=== PATIENT | female | born 1945 | race Caucasian/White ===

== ENCOUNTER 2016-03-28 20:52 | Emergency (ER) | payer MEDICARE, OTHER ==
[~2016-03-28] VITALS: Ht 152.4 cm; Wt 58.0 kg
[~2016-03-28 20:52] MED LIST: ALBU2.5V3 NEB; ALEN70TA30 PO; ALP2OP10 OP; CEPH-443 PO; CHOL2000 PO; COMBIG5 OP; FLUTICASONE PROPION INH
[2016-03-28 21:07] VITALS: Ht 152.4 cm; Wt 58.0 kg
[2016-03-28 21:37] VITALS: TEMP 97.9
[2016-03-28] MEDS ORDERED: SOD CHLORIDE 0.9% 1,000 ML IV STA (21:40)
[2016-03-28] MEDS ORDERED: ALEN70TA30 PO (21:44)
[2016-03-28] MEDS ORDERED: VALS1TAB76 PO (21:45)
[2016-03-28] MEDS ORDERED: ERGO500037 PO (21:46)
[2016-03-28 22:20] LABS: INR 0.96; PROTIME 12.8 Sec (12.2-14.2)
[2016-03-28 22:21] LABS: PARTIAL THROMBOPLASTIN TIME 29.1 Sec (25.0-35.0)
[2016-03-28 22:24] LABS: CHLORIDE 90 mmol/L (97-110); POTASSIUM 4.2 mmol/L (3.5-5.1); SODIUM 128 mmol/L (135-144)
[2016-03-28 22:27] LABS: ANION GAP 15 (8-16); BLOOD UREA NITROGEN 15 mg/dl (7-20); CARBON DIOXIDE 27 mmol/L (21-31); CREATININE 0.56 mg/dl (0.44-1.00)
[2016-03-28 22:28] LABS: CALCIUM 9.1 mg/dl (8.4-10.2); GLUCOSE 125 mg/dl (70-220)
--- NOTE | 2016-03-28 22:29 | RADRPT ---
PROCEDURE: XR Chest. CLINICAL INDICATION: Syncope. TECHNIQUE: Portable AP semi erect view of the chest was obtained. COMPARISON: 03/31/2013 FINDINGS: The cardiomediastinal silhouette is within normal limits. The lungs are clear. There is no evidenc e for pleural effusion, pneumothorax or pulmonary vascular congestion. The osseous structures are i ntact with no evidence for acute abnormality. Mild calcification of the aortic arch is visualized RPTAT:HJJR IMPRESSION: 1.No evidence for acute intrathoracic pathology or change from 03/31/2013. 2. Aortic atherosclerosis is present. Physician Nick Date Time Electronically viewed and signed by Physician Nick on 03/28/2016 22:28 /
[2016-03-28 22:33] LABS: BASOPHILS % 0.2 % (0.0-2.0); EOSINOPHILS # 0.2 10^3/ul (0.0-0.5); EOSINOPHILS % 2.4 % (0.0-7.0); HEMATOCRIT 40.6 % (37.0-47.0); HEMOGLOBIN 13.7 g/dl (12.0-16.0); LYMPHOCYTES # 0.6 10^3/ul (0.8-2.9); LYMPHOCYTES % 7.4 % (15.0-51.0); MEAN CORPUSCULAR HEMOGLOBIN 29.8 pg (29.0-33.0); MEAN CORPUSCULAR HGB CONC 33.8 g/dl (32.0-37.0); MEAN CORPUSCULAR VOLUME 88.1 fl (82.0-101.0); MEAN PLATELET VOLUME 8.5 fl (7.4-10.4); MONOCYTE # 0.8 10^3/ul (0.3-0.9); MONOCYTES % 10.3 % (0.0-11.0); NEUTROPHIL # 6.5 10^3/ul (1.6-7.5); NEUTROPHILS % 79.7 % (39.0-77.0); PLATELET COUNT 208 10^3/UL (140-440); RED BLOOD COUNT 4.61 10^6/ul (4.20-5.40); RED CELL DISTRIBUTION WIDTH 13.6 % (11.5-14.5); UNCORRECTED WBC 8.2 10^3/ul (4.8-10.8); WHITE BLOOD COUNT 8.2 10^3/ul (4.8-10.8)
[2016-03-28 22:41] LABS: TROPONIN-I < 0.012 ng/ml (0.00-0.12)
[2016-03-28 23:03] LABS: CONDITION 1
--- NOTE | 2016-03-28 23:09 | RADRPT ---
PROCEDURE: CT head, without contrast. CLINICAL INDICATION: Syncope. TECHNIQUE: Noncontrast CT examination of the head, with axial, sagittal and coronal reformatted im ages. Automated dose exposure control was employed. CTDI: 43.05 mGy and DLP: 630.20 mGy-cm. COMPARISON: None. 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 No acute hemorrhage. Subarachnoid spaces are substantially preserved and symmetric. Ventricles ar e unremarkable. No mass effect. Rogel-white matter distinction is preserved without evident decreased attenuation t o suggest acute or recent infarct. Sinuses and osseous structures are unremarkable. 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 RPTAT: [facility] Physician Rohit Date Time Electronically viewed and signed by Physician Rohit on 03/28/2016 23:09 RS/
[2016-03-28] MEDS ORDERED: ONDA4TAB11 PO (23:18)
[2016-03-28 23:25] LABS: ADD UMIC NO; URINE BILIRUBIN (Dip) NEGATIVE (NEGATIVE); URINE BLOOD (Dip) NEGATIVE (NEGATIVE); URINE COLOR LT. YELLOW (YELLOW); URINE GLUCOSE (Dip) NEGATIVE (NEGATIVE); URINE KETONES (Dip) NEGATIVE (NEGATIVE); URINE LEUKOCYTE ESTERASE (Dip) NEGATIVE (NEGATIVE); URINE NITRITE (Dip) NEGATIVE (NEGATIVE); URINE TOTAL PROTEIN (Dip) NEGATIVE (NEGATIVE); URINE UROBILINOGEN (Dip) 0.2 E.U./dL (0.1-1.0)
[2016-03-28] MEDS ORDERED: SOD CHLORIDE 0.9% 1,000 ML IV ONE (23:30)
--- NOTE | 2016-03-29 01:09 | ERD ---
ER Documentation Chief Complaint Date/Time DATE: 03/29/16 TIME: 01:05 Chief Complaint syncope x 3 seconds, hypertension hx-htn -taking bp meds HPI This 70-year-old female presents the ER for a syncopal episode witnessed by family. Reportedly she was laying down in bed when she got up to go to the bathroom took some steps towards the bathroom and felt very lightheaded and nauseated. She knelt down in the bathroom to throw up in the toilet when she had 3 seconds of loss of consciousness. She did not fall or hit her head. She felt somewhat lightheaded and nauseated afterward. She did vomit. Denies any diarrhea. Patient and family admits that she rarely drinks water. She had no chest pain shortness of breath fever or chills. ROS All systems reviewed and are negative except as per history of present illness. Medications Home Meds Active Scripts Ondansetron (Zofran Odt) 4 Mg Tab.rapdis, 4 MG PO Q6, #10 Prov:FANNYNORBERTVARSHA SOLOMON 03/28/16 Reported Medications Ergocalciferol (Vitamin D2) (VITAMIN D2) 50,000 Unit Capsule, 70938 UNIT PO Q7D , CAP 03/28/16 Valsartan-Hydrochlorothiazide (Valsartan-HCTZ) 160-12.5 Mg Tablet, 1 TAB PO DAILY, #30 TAB 03/28/16 Alendronate Sodium* (Fosamax*) 70 Mg Tablet, 70 MG PO Q7D, #4 TAB 03/28/16 Discontinued Reported Medications Albuterol Sulfate* (Albuterol Sulfate* Neb) 0.083%-3 Ml Neb, 2.5 MG NEB Q3H Y for WHEEZING AND SOB, #30 VIAL 08/30/15 Alendronate Sodium* (Fosamax*) 70 Mg Tablet, 70 MG PO Q7D, #4 TAB 08/30/15 Cholecalciferol* (Vitamin D3*) 2,000 Unit Cap, 2000 UNIT PO DAILY, CAP 08/30/15 [Fluticasone Propion] No Conflict Check, 50 MCG INH BID 06/12/12 Brimonidine/Timolol* (Combigan*) 5 Ml Drops, 2.5 ML OP DAILY 09/22/11 Brimonidine Tartrate* (Alphagan*) 10 Ml Drops, 10 ML OP DAILY 09/22/11 Discontinued Scripts Cephalexin* (Keflex*) 500 Mg Capsule, 500 MG PO QID for 5 Days, CAP Prov:GIOVANI MAYNARD 12/08/14 Allergies Allergies: Coded Allergies: No Known Allergy (Unverified , 03/28/16) PMhx/Soc History of Surgery: Yes (EYE SX) Anesthesia Reaction: No Hx Neurological Disorder: No Hx Respiratory Disorders: Yes (HX BRONCHITIS) Hx Cardiac Disorders: No Hx Psychiatric Problems: No Hx Miscellaneous Medical Probl: No (htn, anxiety) Hx Alcohol Use: No Hx Substance Use: No Hx Tobacco Use: No Smoking Status: Former smoker Physical Exam Vitals Vital Signs Date Time Temp Pulse Resp B/P Pulse Ox O2 Delivery O2 Flow Rate FiO2 03/28/16 21:37 97.9 76 20 182/94 100 Room Air 03/28/16 21:07 97.4 74 20 188/88 99 Physical Exam Const: [] No distress Head: Atraumatic Eyes: Normal Conjunctiva, EOMI, PRL ENT: Normal External Ears, Nose and Mouth. Neck: Full range of motion..~ No meningismus. Resp: Clear to auscultation bilaterally Cardio: Regular rate and rhythm, no murmurs Abd: Soft, non tender, non distended. Normal bowel sounds Skin: No petechiae or rashes Back: No midline or flank tenderness Ext: No cyanosis, or edema Neur: Awake and alert and oriented 3, cranial nerves II through XII intact, no cerebellar deficits, normal gait Psych: Normal Mood and Affect Result Diagram: 03/28/16215403/28/162154 Results 24 hrs Laboratory Tests Test 03/28/16 21:30 03/28/16 21:55 Urine Bilirubin NEGATIVE Urine Clarity CLEAR Urine Color LT. YELLOW Urine Glucose NEGATIVE% Urine Hemoglobin NEGATIVE Urine Ketones NEGATIVE Urine Leukocyte Esterase NEGATIVE Urine Nitrite NEGATIVE Urine Specific [place] 1.015 Urine Total Protein NEGATIVE Urine Urobilinogen 0.2 E.U./dL Urine pH 8.5 Activated Partial Thromboplast Time 29.1Sec Anion Gap 15 Basophils # 0.010^3/ul Basophils % 0.2% Blood Urea Nitrogen 15mg/dl Calcium Level 9.1mg/dl Carbon Dioxide Level 27mmol/L Chloride Level 90mmol/L Creatinine 0.56mg/dl Eosinophils # 0.210^3/ul Eosinophils % 2.4% Glucose Level 125mg/dl Hematocrit 40.6% Hemoglobin 13.7g/dl INR International Normalized Ratio 0.96 Lymphocytes # 0.610^3/ul Lymphocytes % 7.4% Mean Corpuscular Hemoglobin 29.8pg Mean Corpuscular Hemoglobin Concent 33.8g/dl Mean Corpuscular Volume 88.1fl Mean Platelet Volume 8.5fl Monocytes # 0.810^3/ul Monocytes % 10.3% Neutrophils # 6.510^3/ul Neutrophils % 79.7% Nucleated Red Blood Cells # 0.010^3/ul Nucleated Red Blood Cells % 0.0/100WBC Platelet Count 27268^3/UL Potassium Level 4.2mmol/L Prothrombin Time 12.8Sec Prothrombin Time Ratio 1.0 Red Blood Count 4.6110^6/ul Red Cell Distribution Width 13.6% Sodium Level 128mmol/L Troponin I < 0.012ng/ml White Blood Count 8.210^3/ul Current Medications Medications (Trade) Dose Ordered Sig/Alena Route PRN Reason Start Time Stop Time Status Last Admin Dose Admin Sodium Chloride 1,000 ml @ 1,000 mls/hr Q1H STAT IV 03/28/16 21:40 03/28/16 22:39 DC 03/28/16 22:00 Sodium Chloride (NS) 1,000 ml @ 1,000 mls/hr Q1H ONCE IV 03/28/16 23:30 03/29/16 00:29 DC 03/28/16 23:26 Procedures/MDM Syncopal episode with excellent story for vasovagal syncope. Patient is dehydrated from rarely drinking water. She had stood up right after being in a laying position and taken some steps when she got lightheaded. No injury. Patient was hydrated with 2 L of normal saline the ER he feels completely well. No signs of cardiac ischemia. No signs of intracranial process on CAT scan. Patient does have a low sodium likely secondary to her dehydration. She is asymptomatic in the emergency room. I am going to discharge with primary care follow-up instructions to obtain a sodium level. Return precautions are given to the ER for any concerning change. EKG interpretation: Normal sinus rhythm, rate of 96, normal axis, no ST or T- wave changes concerning for acute ischemia, normal intervals. Normal EKG monitoring engineer interpretation: Normal sinus rhythm without arrhythmia Chest x-ray interpretation: No acute process no infiltrates, no widened mediastinum, no pulmonary edema, no pneumothorax, no fractures CT head interpretation: I see no acute process, no hemorrhage no mass-effect no midline shift no abnormal masses, no fracture Departure Diagnosis: Primary Impression: Dehydration Additional Impressions: Hyponatremia Syncope Condition: Stable Patient Instructions: Causes of Syncope, Dehydration, Syncope, Vasovagal Referrals: FIDENCIO BENNETT (PCP) Additional Instructions: Llame al doctor MAANA y elmo megha ALCIRA PARA DENTRO DE 1-2 FERRELL. Cheque el nivel de SODIO. Dgale a la secretaria que nosotros le instruimos hacer esta alcira.Avise o llame si lee condicin se empeora antes de la alcira. Regresa aqui si peor o no mejor. NORBERT ESCOBEDO DO Mar 29, 2016 01:09
[2016-03-29 01:23] VITALS: BP 163/80; PULSE 94; RESP 16
== END 2016-03-29 01:25 | disposition home or self-care (01) ==
LOC: E/R 20:52
DX: E86.0 Dehydration (principal); E87.1 Hypo-osmolality and hyponatremia; I10 Essential (primary) hypertension; R11.0 Nausea; Z87.891 Personal history of nicotine dependence
CPT/HCPCS: 70450; 71010; 80048; 81003; 84484; 85025; 85610; 85730; 93005; 99285; J7030

== ENCOUNTER 2016-05-15 09:20 | Day surgery (SDC) | payer MEDICARE, OTHER ==
--- NOTE | 2016-05-07 13:27 | RADRPT ---
PROCEDURE: XR Chest. CLINICAL INDICATION: Preoperative chest TECHNIQUE: Chest PA COMPARISON: 03/28/2016 FINDINGS: The mediastinal structures are unremarkable. There is mild calcification of the thoracic aorta (con sistent with atherosclerosis). The heart is normal in size and configuration. The pulmonary vascul arity is normal. The lung hernández are unremarkable. No consolidation is identified. The pleural sp aces are unremarkable. The osseous structures are unremarkable. IMPRESSION: Calcification of the thoracic aorta (consistent with atherosclerosis). No evidence for active cardiopulmonary disease. RPTAT: HGDB .Balbir Rondon MD, MD Date Time Electronically viewed and signed by .Balbir Rondon MD, on 05/07/2016 13:26 .B/
[2016-05-15] VITALS (12 sets, daily range): BP systolic 123–142; BP diastolic 56–79; PULSE 56–78; RESP 15–18; Ht 149.9 cm; Wt 56.0 kg
[~2016-05-15] VITALS: Ht 149.9 cm; Wt 56.0 kg
[~2016-05-15 09:20] MED LIST changes: -ALBU2.5V3 NEB; -ALP2OP10 OP; +CEFAZOLIN 2 GM/50 ML (PMX) 50 ML IVPB SCH; -CEPH-443 PO; -CHOL2000 PO; -COMBIG5 OP; +ERGO500037 PO; -FLUTICASONE PROPION INH; +GLYCOPYRROLATE 1 MG INJ ONE; +LIDOCAINE 2% (SDV) 5 ML INJ ONE; +ONDA4TAB11 PO; +SOD CHLORIDE 0.9% 1,000 ML IV SCH; +VALS1TAB76 PO
[2016-05-15 10:54] LABS: ADD SCAN DIFF NO
[2016-05-15 10:59] LABS: BASOPHILS % 0.8 % (0.0-2.0); EOSINOPHILS # 0.2 10^3/ul (0.0-0.5); EOSINOPHILS % 4.7 % (0.0-7.0); HEMATOCRIT 40.6 % (37.0-47.0); HEMOGLOBIN 13.6 g/dl (12.0-16.0); LYMPHOCYTES # 1.6 10^3/ul (0.8-2.9); LYMPHOCYTES % 33.2 % (15.0-51.0); MEAN CORPUSCULAR HEMOGLOBIN 29.9 pg (29.0-33.0); MEAN CORPUSCULAR HGB CONC 33.5 g/dl (32.0-37.0); MEAN CORPUSCULAR VOLUME 89.2 fl (82.0-101.0); MEAN PLATELET VOLUME 9.9 fl (7.4-10.4); MONOCYTE # 0.5 10^3/ul (0.3-0.9); MONOCYTES % 10.2 % (0.0-11.0); NEUTROPHIL # 2.5 10^3/ul (1.6-7.5); NEUTROPHILS % 50.7 % (39.0-77.0); PLATELET COUNT 237 10^3/UL (140-415); RED BLOOD COUNT 4.55 10^6/ul (4.20-5.40); RED CELL DISTRIBUTION WIDTH 13.2 % (11.5-14.5); WHITE BLOOD COUNT 4.9 10^3/ul (4.8-10.8)
[2016-05-15 11:04] LABS: INR 0.95; PROTIME 12.7 Sec (12.2-14.2)
[2016-05-15 11:05] LABS: PARTIAL THROMBOPLASTIN TIME 29.4 Sec (25.0-35.0)
[2016-05-15 11:13] LABS: CALCIUM 9.4 mg/dl (8.4-10.2); CREATININE 0.6 mg/dl (0.44-1.00); POTASSIUM 4.4 mmol/L (3.5-5.1)
[2016-05-15] MEDS ORDERED: ROCURONIUM 50 MG INJ ONE (12:57)
[2016-05-15] MEDS ORDERED: CEFAZOLIN 1 GM INJ ONE (12:57)
[2016-05-15] MEDS ORDERED: PROPOFOL 20 ML ONE (12:57)
[2016-05-15] MEDS ORDERED: ONDANSETRON 4 MG INJ ONE (12:58)
[2016-05-15] MEDS ORDERED: NEOSTIGMINE 3 MG/3 ML SYRINGE ONE (12:58)
[2016-05-15] MEDS ORDERED: DEXAMETHASONE 4 MG/ML 1 ML INJ ONE (12:58)
[2016-05-15] MEDS ORDERED: FENTAnyl 50 MCG/ML VIAL ONE (12:58)
[2016-05-15] MEDS ORDERED: MIDAZOLAM 1 MG/ML 2 ML INJ ONE (12:58)
[2016-05-15] MEDS ORDERED: BUPIVACAINE 0.5%/EPI (SDV) 30 ML INJ INJ ONE (14:29)
--- NOTE | 2016-05-15 15:03 | OPR ---
DATE OF OPERATION: 05/15/2016 PREOPERATIVE DIAGNOSIS: Pain. Anal pain, symptomatic hemorrhoids and a question of a mass versus p rolapse. PREOPERATIVE DIAGNOSIS: Perianal pain, symptomatic hemorrhoids and a question of a mass versus prol apse. POSTOPERATIVE DIAGNOSIS: Perianal pain, symptomatic hemorrhoids and a question of a mass versus pro lapse. PROCEDURE PERFORMED: Anal exam under anesthesia, hemorrhoidectomy of the right posterior hemorrhoid portion and hemorrhoidectomy of the left lateral hemorrhoidal portion. SURGEON: Abisai Hsu MD SANITATION WORKER CLEANING EQUIPMENT: sOmani Mullen MD ANESTHESIA: General. ANESTHESIOLOGIST: Eyal Johnson MD INDICATIONS FOR PROCEDURE: The patient is a 70-year-old female who presented with longstanding hemo rrhoids but began to notice a protrusion from the rectum. She was examined in the office. There wa s a question of possible mucosal prolapse. She was counseled as to need for anal exam under anesthe alban, hemorrhoidectomy and possible repair of prolapse. She consented and was scheduled for surgery. DESCRIPTION OF PROCEDURE: The patient was brought to the operating theater, placed under general en dotracheal tube anesthesia. She was then placed in the prone jackknife position. The buttocks were widely shaved, taped, prepped and draped in usual sterile fashion. Visual inspection of her anal c anal revealed findings consistent with very large hemorrhoidal tissue consistent with previous throm bosed hemorrhoids. There was no definite evidence of prolapse. There was no evidence of a rectal m ass. Decision was made to resect the external hemorrhoids. Attention was first directed to the right posterior portion, very large, it was grasped with hemorrh oidal clamps and then the LigaSure device was used to transect it. It was sent for permanent pathol ogic analysis. Subsequently, a large hemorrhoid in the left lateral position was identified. It wa s also elevated with hemorrhoidal clamps and transected with the LigaSure device and sent separately for pathologic analysis. Minimal bleeding was controlled with cautery and the area was then infilt rated with 0.5% Marcaine local anesthetic with epinephrine, and this concluded the procedure. The p atient tolerated the procedure well. The estimated blood loss was 10 mL. There were no complicatio ns and the patient was transported in stable condition to the recovery room. Dictated By: ABISAI HSU MD TL/YOHAN Conf#: [id number] DID#: [id number]
--- NOTE | 2016-05-16 13:26 | RADRPT ---
Vent Rate: 56 bpm RR Interval: 0 msec FL Interval: 132 msec QRS Duration: 74 msec QT Interval: 426 msec QTC Interval: 411 msec P-R-T [place]: 47 - 70 - 53 degrees Sinus bradycardia Otherwise normal ECG No previous tracing available for comparison Electronically Signed By: Eduardo Gaines [id number]
== END 2016-05-15 16:31 | disposition home or self-care (01) ==
LOC: SDS 09:20
PROVIDERS: ATTEND Surgery Surgical Oncology
DX: K64.4 Residual hemorrhoidal skin tags (principal); J45.909 Unspecified asthma, uncomplicated; I10 Essential (primary) hypertension
CPT/HCPCS: 46250; 80048; 85025; 85610; 85730; 88304; 93005; J0690; J1100; J2250; J2405; J2710; J3010; 71010

== ENCOUNTER 2016-12-08 05:55 | Day surgery (SDC) | payer MEDICARE, OTHER ==
--- NOTE | 2016-12-07 13:31 | PREOPHP ---
DATE OF ADMISSION: 12/08/2016 HISTORY OF PRESENT ILLNESS: This 71-year-old patient is admitted for elective cataract surgery of t he right eye. The patient has had progressive deterioration of vision over the past year involving the right eye. The patient underwent cataract surgery in the left eye in 2011 with good visual resu lt. The patient also has a history of chronic open angle glaucoma, currently being treated with Rocío monidine and Timolol. ALLERGIES: THERE ARE NO KNOWN ALLERGIES. CURRENT MEDICATIONS: The patient is being treated for hypertension, bronchial asthma and vitamin D deficiency. PHYSICAL EXAMINATION: The visual acuity with best correction is 20/80 in the right eye and 20/40 in the left eye. Slit lamp examination reveals nuclear sclerotic and posterior subcapsular cataract i n the right eye. The left eye has a posterior chamber intraocular lens appropriately positioned. A pplanation tonometry is 17 mmHg in both eyes. Examination of the retina reveals moderately advanced optic disk cupping secondary to chronic glaucoma. Examination of the macula appears within normal limits. DIAGNOSIS: Cataract, right eye. PLAN: Cataract extraction with lens implant, right eye. The risks and alternatives to the surgery have been discussed with the patient, as well as the hope for improvement of visual acuity leading t o a greater ability to perform activities of daily living. The patient agrees to proceed with surge ry. Dictated By: SISI CUETO/YOHAN Conf#: [id number] DID#: [id number]
[~2016-12-08] VITALS: Ht 149.9 cm; Wt 56.0 kg
[2016-12-08] VITALS (9 sets, daily range): BP systolic 122–154; BP diastolic 58–85; PULSE 56–74; RESP 12–20; Ht 149.9 cm; Wt 56.0 kg
[~2016-12-08 05:55] MED LIST changes: +CARBACHOL 0.01% 1.5 ML OPH INJ IO ONE; +CEFAZOLIN 1 GM INJ INJ ONE; -CEFAZOLIN 2 GM/50 ML (PMX) 50 ML IVPB SCH; +DEXAMETHASONE 4 MG/ML 1 ML INJ INJ ONE; -GLYCOPYRROLATE 1 MG INJ ONE; -LIDOCAINE 2% (SDV) 5 ML INJ ONE; -ONDA4TAB11 PO; -SOD CHLORIDE 0.9% 1,000 ML IV SCH
[2016-12-08] MEDS ORDERED: TROPICAMIDE 1% 3ML OPH OPER SCH (06:00)
[2016-12-08] MEDS ORDERED: CYCLOPENTOLATE/PHENYLEPH 2 ML OPH OPER SCH (06:00)
[2016-12-08] MEDS ORDERED: CIPROFLOXACIN 0.3% 2.5 ML OPH OPER SCH (06:00)
[2016-12-08] MEDS ORDERED: DICLOFENAC 0.1% 2.5 ML OPH OPER SCH (06:00)
[2016-12-08] MEDS ORDERED: GENTAMICIN 80 MG INJ ONE (06:30)
[2016-12-08] MEDS ORDERED: LIDOCAINE 4% (MPF) 5 ML INJ ONE (06:30)
[2016-12-08] MEDS ORDERED: CARBACHOL 0.01% 1.5 ML OPH INJ ONE (06:30)
[2016-12-08] MEDS ORDERED: CEFAZOLIN 1 GM INJ ONE (06:30)
[2016-12-08] MEDS ORDERED: DEXAMETHASONE 4 MG/ML 1 ML INJ ONE (06:31)
[2016-12-08] MEDS ORDERED: EPINEPHrine 1 MG INJ ONE (06:31)
[2016-12-08] MEDS ORDERED: LABETALOL HCL 20MG INJ IV PRN (07:00)
[2016-12-08] MEDS ORDERED: OXYCODONE/ACETAMINOPHEN (5/325) TAB PO PRN ×2 (07:00)
[2016-12-08] MEDS ORDERED: ONDANSETRON 4 MG INJ IV PRN (07:00)
[2016-12-08] MEDS ORDERED: VALS320T11 PO (07:12)
[2016-12-08] MEDS ORDERED: TML25OP5 BOTH EYES (07:12)
[2016-12-08] MEDS ORDERED: ALP2OP10 BOTH EYES (07:13)
[2016-12-08] MEDS ORDERED: FENTAnyl 50 MCG/ML VIAL ONE (07:44)
[2016-12-08] MEDS ORDERED: LIDOCAINE 2% (SDV) 5 ML INJ ONE (07:45)
[2016-12-08] MEDS ORDERED: PROPOFOL 20 ML ONE (07:45)
[2016-12-08] MEDS ORDERED: TETRACAINE 0.5% 4 ML OPH RIGHT EYE ONE (08:25)
[2016-12-08] MEDS ORDERED: GENTAMICIN 80 MG INJ IRR ONE (08:25)
[2016-12-08] MEDS ORDERED: LIDOCAINE 4% (MPF) 5 ML INJ INJ ONE (08:25)
--- NOTE | 2016-12-08 08:58 | SIPON ---
Date/Time of Note Date/Time of Note DATE: 12/08/16 TIME: 08:56 Operative Report Preoperative Diagnosis cataract od Postoperative Diagnosis same Operation/Procedure Performed cataract extraction/lens implant od Surgeon Orlin Nickerson paraprofessional education assistant none Anesthesia: MAC Estimated blood loss: none Transfusion Required none Specimen none Grafts/Implants posterior chamber lens implant Complications none SISI NICEKRSON MD Dec 08, 2016 08:58
--- NOTE | 2016-12-08 10:35 | OPR ---
DATE OF OPERATION: 12/08/2016 PREOPERATIVE DIAGNOSIS: Cataract, right eye. POSTOPERATIVE DIAGNOSIS: Cataract, right eye. OPERATION PERFORMED: Cataract extraction with lens implant, right eye. SURGEON: Sisi Key MD ANESTHESIA: Local standby. ANESTHESIOLOGIST: Eduardo Nguyen CRNA PROCEDURE: The patient was brought to the operating room and placed on the table with an IV in plac e and the patient attached to an pharmacy services representative. Oxygen was given via face mask. After some intravenous sedation was administered, local anesthesia was given using Xylocaine 2% with epinephrine, mixed with Marcaine 0.5%. This was given in a lid block and retrobulbar injection. The patient was then prepped and draped in the usual sterile manner. A wire lid speculum was inserted between the lids of the right eye. A Superblade was used to enter t he anterior chamber at the corneoscleral limbus at the 10:30 o'clock position. A separate incision w as made using a 3.0-mm keratome which entered the corneoscleral junction at the 12 o'clock position. Through this 3-mm opening, an irrigating cystotome was introduced into the anterior chamber. The ch heidi was filled with Viscoat and an anterior capsulotomy was performed. Balanced salt solution was then used for hydrodissection of the lens. A phacoemulsification handpiece was then brought into th e field and introduced into the anterior chamber. The lens nucleus was emulsified using a deep groov e and cracking the nucleus into quadrants. Following this, each quadrant was aspirated and emulsifie d at the pupillary margin. After this was completed, the irrigation/aspiration handpiece was brought to the field, introduced i nto the posterior chamber, and the lens cortical material was removed. When this was completed, ashu tional Provisc was injected into the anterior and posterior chambers. The 3-mm opening had its internal lips enlarged, and then the posterior chamber intraocular lens eileen suring 21.0 diopters ([employer] model LI61AO) was then injected into the posterior chamber using the lens injector system. After the leading haptic was introduced into the capsular b ag and the lens optic was present in the center of the eye, the injector was removed and the trailin g haptic was grasped with non-toothed forceps and introduced into the capsular fold superiorly. A Si nskey hook was then used to rotate the intraocular lens so that the lips were oriented in the horizo ntal meridian. One 10-0 nylon suture was placed across the wound. Prior to tying, the irrigation/aspiration handpiece was reintroduced into the anterior chamber to re move the Provisc. Miochol was instilled to constrict the pupil, and then the 10-0 nylon suture was t ied. The ends were cut short and then the knot was buried. Then, 0.5 mL of dexamethasone and 0.5 mL of Ancef were injected into the sub-Tenon space in the infe rior fornix. Ciloxan drops were then placed on the surface of the eye. The speculum was removed and a patch was applied. The patient then left the operating room in satisfactory condition. Dictated By: SISI CUETO/YOHAN Conf#: [id number] DID#: [id number]
== END 2016-12-08 10:10 | disposition home or self-care (01) ==
LOC: SDS 05:55
PROVIDERS: ATTEND Ophthalmology
DX: H25.811 Combined forms of age-related cataract, right eye (principal); I10 Essential (primary) hypertension; H40.1190 Primary open-angle glaucoma, unspecified eye, stage unspecified; J45.998 Other asthma; E55.9 Vitamin D deficiency, unspecified
CPT/HCPCS: 66984; 82962; J0171; J0690; J1100; J1580; J3010; V2632

== ENCOUNTER 2017-12-19 09:58 | Emergency (ER) | END 2017-12-19 10:50 | disposition home or self-care (01) ==

== ENCOUNTER 2018-10-19 11:00 | Emergency (ER) | payer MEDICARE, OTHER ==
[~2018-10-19] VITALS: Ht 149.9 cm; Wt 57.4 kg
[~2018-10-19 11:00] MED LIST changes: +ACET500C5 PO; -ALEN70TA30 PO; +ALP2OP10 BOTH EYES; +BEN25 PO; -CARBACHOL 0.01% 1.5 ML OPH INJ IO ONE; -CEFAZOLIN 1 GM INJ INJ ONE; +D-ME473S2 PO; -DEXAMETHASONE 4 MG/ML 1 ML INJ INJ ONE; -ERGO500037 PO; +LORA-441 PO; +ONDA4TAB14 PO; +TML25OP5 BOTH EYES; -VALS1TAB76 PO; +VALS320T2 PO
[2018-10-19 11:07] VITALS: Ht 149.9 cm; Wt 57.4 kg
[2018-10-19 12:59] VITALS: BP 107/66; PULSE 67; RESP 18
== END 2018-10-19 13:01 | disposition home or self-care (01) ==
LOC: FTE 11:00
DX: F41.9 Anxiety disorder, unspecified (principal); I10 Essential (primary) hypertension; J45.909 Unspecified asthma, uncomplicated
CPT/HCPCS: 99283

== ENCOUNTER 2018-10-28 12:29 | Emergency (ER) | payer MEDICARE, OTHER ==
[~2018-10-28] VITALS: Ht 149.9 cm; Wt 58.2 kg
[~2018-10-28 12:29] MED LIST changes: -LORA-441 PO
[2018-10-28 13:00] VITALS: BP 142/64; PULSE 69; RESP 18; Ht 149.9 cm; Wt 58.2 kg
[2018-10-28] MEDS ORDERED: KETOROLAC 15 MG INJ IM STA (13:44)
[2018-10-28] MEDS ORDERED: LORAZEPAM 0.5 MG TAB PO ONE (14:00)
== END 2018-10-28 14:46 | disposition home or self-care (01) ==
LOC: FTE 12:29
DX: F41.9 Anxiety disorder, unspecified (principal); R51 Headache; I10 Essential (primary) hypertension; J45.909 Unspecified asthma, uncomplicated
CPT/HCPCS: 96372; 99284; J1885; 93005